=== PATIENT | male | born 1985 | race Caucasian/White ===

== ENCOUNTER 2020-08-19 22:03 | Emergency (ER) | payer MEDICAID ==
[~2020-08-19] VITALS: Ht 185.4 cm; Wt 90.0 kg
[2020-08-19] MEDS ORDERED: SERT50TA12 PO (23:38)
[2020-08-19 23:47] LABS: COVID AG,FIA SOURCE NASOPHARYNGEAL
[2020-08-20 00:26] LABS: INFLUENZA TYPE A NEGATIVE FOR TYPE A (NEGATIVE); INFLUENZA TYPE B NEGATIVE FOR TYPE B (NEGATIVE)
[2020-08-20 00:30] VITALS: BP 128/78
[2020-08-20] MEDS ORDERED: ALBUTEROL SULFATE HFA 90 MCG/PUFF 8 GM INHALER IH ONE (00:45)
== END 2020-08-20 01:49 | disposition home or self-care (01) ==
LOC: EMS 22:05
DX: R06.00 Dyspnea, unspecified (principal); I10 Essential (primary) hypertension; F17.210 Nicotine dependence, cigarettes, uncomplicated; Z20.828 Contact with and (suspected) exposure to other viral communicable diseases
CPT/HCPCS: 71045; 87426; 87804; 94640; 99284; U0003; J3535